=== PATIENT | female | born 1985 | race Caucasian/White ===

== ENCOUNTER 2025-03-07 00:10 | Emergency (ER) | payer BC, SELFPAY ==
[2025-03-07] VITALS (8 sets, daily range): BP systolic 108–134; BP diastolic 74–93; PULSE 98–115; RESP 13–23; TEMP 36.5; O2SAT 96–100
--- NOTE | ~2025-03-07 | CT_ITS ---
EXAMINATION: CT abdomen pelvis wo con DATE: 03/07/2025 01:40 INDICATION: Right flank pain. UTI. TECHNIQUE: Computed tomography (CT) of the abdomen and pelvis was performed without intravenous contr ast. The dose-length product was 191.61 mGy-cm. Automated exposure control and iterative reconstructi on technique were employed. COMPARISON: None. FINDINGS: Lung bases unremarkable significant pleural or pericardial effusion. Heart size normal. The liver, spleen, pancreas, adrenal glands and kidneys are unremarkable. Gallbladder is present. Hepati c steatosis. The spleen, pancreas, adrenal glands and kidneys are unremarkable. No renal stones or hy dronephrosis. Nonobstructive bowel gas pattern. Small amount of free fluid in the pelvis, likely phys iologic. No significant vascular abnormality. No lymphadenopathy. IMPRESSION: 1. No acute abdominal abnormality. Reviewed, dictated and finalized at location A.
--- OUTSIDE RECORDS SUMMARY | 2025-03-07 00:12 | XMS_ITS | Clinical Summary ---
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 Name Role Phone Tamy Davies Primary Care Provider Social History Tobacco Use Types Packs/Day Years Used Date Smoking Tobacco: Never Assessed Comments Unknown Sex and Gender Information Value Date Recorded Sex Assigned at Not on file Legal Sex Female 10:21 PM CDT Gender Identity Not on file Sexual Orientation Not on file Plan of Treatment Health Maintenance Due Date Last Done Comments Hepatitis C Virus (HCV) Screening 1986 TdaP Immunization 1986 Human Papillomavirus (HPV) Immunization (1 - 3-dose series) 2001 Hepatitis B Immunization (1 of 3 - 19+ 3-dose series) 2005 Pap Smear 11/05/2007 Cervical Cancer Screening (CCS) 2016 HPV/Cotest 2016 SARS-COV-2 Immunization (2023- season) 2024 Influenza Immunization (#1) 2025 Respiratory Syncytial Virus (RSV) Immunization (Adult) (1 - 1-dose 75+ series) 2061 Meningococcal Immunization (ACWY) Aged Out No longer eligible based on patient's age to complete this topic Pneumococcal Immunization Combined Aged Out No longer eligible based on patient's age to complete this topic Rotavirus Immunization Aged Out No lo nger eligible based on patient's age to complete this topic Insurance [place] Care Teams Tool And Die Repairer Relationship Specialty Start Date End Date Tamy Davies PA [address] [address] PCP - General Adult Medicine 09/15/17
--- OUTSIDE RECORDS SUMMARY | 2025-03-07 00:13 | XMS_ITS | Data Portability ---
Author Organization [facility] THAISZuleyka [facility] Address [address] [place] [address] Care Team Providers Care Instructor Nurse Name Role Phone TAMY DAVIES Primary Care Provider Unavailabl e Assessment No assessment recorded. Plan of Treatment Reminders Order Date Submit Date Provider Last Modified By Organization Details Last Modified Time Details Appointments None recor ded. Lab CBC w/ auto diff 2017 018 ALEXIS SQUIRES, [facility], [facility] [address], [place], [address], 8 10:37:06 CMP, serum or plasm a 2017 018 ALEXIS SQUIRES, [facility], [facility] [address], [place], [address], 8 10:37:07 TSH + free T4, serum 2017 018 ALEXIS SQUIRES, [facility] [place], [facility] [address], [place], [address], 8 10:37:06 HbA1c (hemo globi n A1c), blood 2017 018 Joyce CABRERA [facility] [address], [address], [place], [address], 8 10:37:09 vitam in B12, serum 2017 018 ALEXIS SQUIRES [facility], [address], [place], [address], 8 10:37:11 iron + total iron- fortino ng capac ity (TIBC ), serum 2017 018 ALEXIS SQUIRES, [address], [address], [place], [address], 8 10:37:08 hepat itis panel (A+B+ C), acute , serum 2017 018 ALEXIS SQUIRES, [address], [address], [place], [address], 8 10:37:08 HIV 1+2 AB + HIV 1 p24 Ag, quali tativ e immun oassa y, serum 2017 018 ALEXIS SQUIRES, [address], [address], [place], [address], 8 10:37:10 vitam in D, 25-hy droxy , total , serum 2017 018 ALEXIS SQUIRES, [address], [address], [place], [address], 8 10:37:10 CBC w/ auto diff 2014 015 ALEXIS SQUIRES, [address], [address], [place], [address], 5 07:32:51 ESR (eryt hrocy te sedim entat ion rate) , blood 2014 015 ALEXIS SQUIRES, [address], [address], [place], [address], 5 07:32:52 urina lysis , dipst ick 2014 015 [email or web address] In-Office Order, Internal Use Only DO Not Attach Compendium DO Not Attach Compendium, Do Not Delete/merge, [id number] 5 18:40:06 urina lysis compl ete, refle x cultu re 2014 015 [facility], [address] [facility], [address], [place], [address], 5 07:32:52 rf (rheu matoi d facto r), serum 2014 015 ALEXIS [facility], [address] [place] [address], [address], [place], [address], 5 10:17:00 CBC 2014 015 [email or web address] [facility], [address] [place] [address], [address], [place], [address], 5 09:41:54 CMP, serum or plasm a 2014 015 [email or web address] [facility], [address] [place] [address], [address], [place], [address], 5 09:41:36 TSH, serum or plasm a 2014 015 ALEXIS [facility], [address] [place] [address], [address], [place], [address], 5 10:17:00 LUCI (anti nucle ar antib odies ) bassame n, serum 2014 015 [email or web address] [facility], [address] [place] [address], [address], [place], [address], 5 09:41:54 Referral physi anju hargrove refer ral - Pleas e call pt to sched antonio mcgill jose angel t, Thank you 2017 018 ruddy ma [facility], [address] [facility] , [place], [address], 8 11:49:50 rheum atolo gist refer ral - Patie nt is c/o sever e pain in all the joint s mainl y both shoul ders, elbow s , wrist ,fing ers.M igrat ing joint pain. NSAID S not relie ving the pain. LUCI and and Rheum atoid facto r negat anna.E SR is gisel l 2014 015 ATHENAFAX Not available 5 13:45:11 Procedures None recor ded. Surgeries None recor ded. Imaging CT, chest + abdom en + pelvi s, w/ contr ast 2017 018 ATHENAFAX [facility], [address] [facility] , [place], [address], 8 16:19:50 CT, head, w/o contr ast 2017 018 [email or web address] [facility], [address] [place] [place], [address], 8 10:01:16 x-ray , shoul wendy, 2 views 2015 016 [email or web address] Not available 6 13:41:48 Medication Orders ondan setro n HCl 4 mg table t 2017 018 INTERFACE [id number], [address], [place], [place], [id number], 8 10:41:08 hydro codon e 5 mg-ac etami nophe n 325 mg table t 2015 016 [email or web address] Not available 8 09:22:10 hydro codon e 5 mg-ac etami nophe n 325 mg table t 2014 015 [id number], [address], [place], [place], [id number], 09:22:10 Patient TargetsNo targets recorded. 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 NSAIDS not relieving the pain.LUCI and and Rheumatoid factor negative.ESR is normal Referring Physician: Stiven Galvez, Internal Medicine, Encounter Date: 01/31/2015 Please call pt to schedule a ppointment, Thank you Referring Physician: Tamy Davies, Internal Medicine, Encounter Date: 09/10/2017 Results Created Date Observation Date Name Description Value Unit Range Abnormal Flag Note LastModifiedBy Organization Detail LastModifiedTime 01/25/2001/24/2015 urina lysis , dipst ick Leukocytes Trace Not Available In-Offi ce Order Internal Use Only DO Not Attach Compendium DO Not Attach Compendium, Do Not Delete/merge, [id number] 01/24/2015 10:05:01 01/25/20 15 01/24/2015 urina lysis , dipst ick Nitrite negati ve Not Available In-Office Order Internal Use Only DO Not Attach Compendium DO Not Attach Compendium, Do Not Delete/merge, [id number] 01/24/2015 10:05:01 01/25/20 15 01/24/2015 urina lysis , dipst ick Urobilinogen .2 Not Available In-Of fice Order Internal Use Only DO Not Attach Compendium DO Not Attach Compendium, Do Not Delete/merge, [facility] 01/24/2015 10:05:01 01/25/20 15 01/24/2015 urina lysis , dipst ick Protein Negati ve Not Available In-Office Order Internal Use Only DO Not Attach Compendium DO Not Attach Compendium, Do Not Delete/merge, [facility] 01/24/2015 10:05:01 01/25/2001/24/2015 urina lysis , dipst ick pH 7.0 Not Available In-Office Order Internal Use Only DO Not Attach Compendium DO Not Attach Compendium, Do Not Delete/merge, [facility] 01/24/2015 10:05:01 01/25/2001/24/2015 urina lysis , dipst ick Blood Negati ve Not Available In-Office Order Internal Use Only DO Not Attach Compendium DO Not Attach Compendium, Do Not Delete/merge, [facility] 01/24/2015 10:05:01 01/25/20 15 01/24/2015 urina lysis , dipst ick Specific [place] 1.010 Not Available In-Off ice Order Internal Use Only DO Not Attach Compendium DO Not Attach Compendium, Do Not Delete/merge, [facility] 01/24/2015 10:05:01 01/25/20 15 01/24/2015 urina lysis , dipst ick Ketone Negati ve Not Available In-Office Order Internal Use Only DO Not Attach Compendium DO Not Attach Compendium, Do Not Delete/merge, [facility] 01/24/2015 10:05:01 01/25/20 15 01/24/2015 urina lysis , dipst ick Bilirubin Negati ve Not Available In-Office Order Internal Use Only DO Not Attach Compendium DO Not Attach Compendium, Do Not Delete/merge, [facility] 01/24/2015 10:05:01 01/25/2001/24/2015 urina lysis , dipst ick Glucose Negati ve Not Available In-Office Order Internal Use Only DO Not Attach Compendium DO Not Attach Compendium, Do Not Delete/merge, [facility] 01/24/2015 10:05:01 01/25/2001/24/2015 urina lysis , dipst ick Color Pale Yellow Not Available In-Office Order Internal Use Only DO Not Attach Compendium DO Not Attach Compendium, Do Not Delete/merge, [id number] 01/24/2015 10:05:01 01/23/20 15 01/23/2015 TSH, serum or plasm a TSH 1.34 mIU/L normal Refer ence Range > or = 20 Years 0.40- 4.50 Pregn leidy Range s First trime ster 0.26- 2.66 Secon d trime ster 0.55- 2.73 Third trime ster 0.43- 2.91 Not Available [address], [address], 01/23/2015 02:43:05 01/23/2001/23/2015 CMP, serum or plasm a glucose 83 mg/dL 65-99 normal Fasti ng refer ence inter porfirio Not Available [address], [address], 01/23/2015 12:35:19 01/23/20 15 01/23/2015 CMP, serum or plasm a urea nitrogen (BUN) 10 mg/dL 7-25 normal Not Available [address], [address], 01/23/2015 12:35:19 01/23/20 15 01/23/2015 CMP, serum or plasm a creatinine 0.68 mg/dL 0.50-1 .10 normal Not Available [address], [address], 01/23/2015 12:35:19 01/23/20 15 01/23/2015 CMP, serum or plasm a eGFR non-afr. venezuelan 119 mL/mi n/1.7 3m2 > or = 60 normal Not Available [facility] [address], [address], 01/23/2015 12:35:19 01/23/20 15 01/23/2015 CMP, serum or plasm a eGFR 138 mL/mi n/1.7 3m2 > or = 60 normal Not Available [address], [address], 01/23/2015 12:35:19 01/23/20 15 01/23/2015 CMP, serum or plasm a BUN/creatini ne ratio NOT APPLIC ABLE (calc ) 6-22 Not Available [address], [address], 01/23/2015 12:35:19 01/23/20 15 01/23/2015 CMP, serum or plasm a sodium 135 mmol/ L 135-14 6 normal Not Available [address], [address], 01/23/2015 12:35:19 01/23/2001/23/2015 CMP, serum or plasm a potassium 3.9 mmol/ L 3.5-5. 3 normal Not Available [address], [address], 01/23/2015 12:35:19 01/23/2001/23/2015 CMP, serum or plasm a chloride 105 mmol/ L 98-110 normal Not Available [address], [address], 01/23/2015 12:35:19 01/23/2001/23/2015 CMP, serum or plasm a carbon dioxide 19 mmol/ L 19-30 normal Not Available [address], [address], 01/23/2015 12:35:19 01/23/2001/23/2015 CMP, serum or plasm a calcium 8.9 mg/dL 8.6-10 .2 normal Not Available [address], [address], 01/23/2015 12:35:19 01/23/2001/23/2015 CMP, serum or plasm a protein, total 7.1 g/dL 6.1-8. 1 normal Not Available [address], [address], 01/23/2015 12:35:19 01/23/2001/23/2015 CMP, serum or plasm a albumin 4.4 g/dL 3.6-5. 1 normal Not Available [address], [address], 01/23/2015 12:35:19 01/23/20 15 01/23/2015 CMP, serum or plasm a globulin 2.7 g/dL_ (calc ) 1.9-3. 7 normal Not Available [address], [address], 01/23/2015 12:35:19 01/23/2001/23/2015 CMP, serum or plasm a albumin/glob ulin ratio 1.6 (calc ) 1.0-2. 5 normal Not Available [address], [address], 01/23/2015 12:35:19 01/23/2001/23/2015 CMP, serum or plasm a bilirubin, total 0.3 mg/dL 0.2-1. 2 normal Not Available [address], [address], 01/23/2015 12:35:19 01/23/2001/23/2015 CMP, serum or plasm a alkaline phosphatase 50 U/L 33-115 normal Not Available [facility] [address], [address], 01/23/2015 12:35:01/23/2001/23/2015 CMP, serum or plasm a AST 18 U/L 10-30 normal Not Available [address], [address], 01/23/2015 12:35:19 01/23/2001/23/2015 CMP, serum or plasm a ALT 20 U/L 6-29 normal Not Available [address], [address], 01/23/2015 12:35:01/23/2001/23/2015 CBC w/ auto diff white blood cell count 12.5 thous and/u L 3.8-10 .8 high Not Available [address], [address], 01/23/2015 12:35:01/23/2001/23/2015 CBC w/ auto diff red blood cell count 5.10 oly on/uL 3.80-5 .10 normal Not Available [address], [address], 01/23/2015 12:35:19 01/23/2001/23/2015 CBC w/ auto diff hemoglobin 13.4 g/dL 11.7-1 5.5 normal Not Available [address], [address], 01/23/2015 12:35:19 01/23/2001/23/2015 CBC w/ auto diff hematocrit 41.0 % 35.0-4 5.0 normal Not Available [address], [address], 01/23/2015 12:35:19 01/23/2001/23/2015 CBC w/ auto diff MCV 80.4 fL 80.0-1 00.0 normal Not Available [address], [address], 01/23/2015 12:35:01/23/2001/23/2015 CBC w/ auto diff MCH 26.3 pg 27.0-3 3.0 low Not Available [address], [address], 01/23/2015 12:35:19 01/23/2001/23/2015 CBC w/ auto diff MCHC 32.7 g/dL 32.0-3 6.0 normal Not Available [address], [address], 01/23/2015 12:35:19 01/23/20 15 01/23/2015 CBC w/ auto diff RDW 16.2 % 11.0-1 5.0 high Not Available [address], [address], 01/23/2015 12:35:19 01/23/20 15 01/23/2015 CBC w/ auto diff platelet count 302 thous and/u L 140-40 0 normal Not Available [address], [address], 01/23/2015 12:35:19 01/23/2001/23/2015 CBC w/ auto diff MPV 7.6 fL 7.5-11 .5 normal Not Available [address], [address], 01/23/2015 12:35:19 01/23/20 15 01/23/2015 CBC w/ auto diff absolute neutrophils 9525 cells /uL 1500-7 800 high Not Available [address], [address], 01/23/2015 12:35:19 01/23/2001/23/2015 CBC w/ auto diff absolute lymphocytes 2350 cells /uL 850-39 00 normal Not Available [address], [address], 01/23/2015 12:35:19 01/23/2001/23/2015 CBC w/ auto diff absolute monocytes 425 cells /uL 200-95 0 normal Not Available [address], [address], 01/23/2015 12:35:19 01/23/2001/23/2015 CBC w/ auto diff absolute eosinophils 175 cells /uL 15-500 normal Not Available [address] [address] [place], [address], 01/23/2015 12:35:19 01/23/20 15 01/23/2015 CBC w/ auto diff absolute basophils 25 cells /uL 0-200 normal Not Available [address] [place], [address], 01/23/2015 12:35:19 01/23/20 15 01/23/2015 CBC w/ auto diff neutrophils 76.2 % normal Not Available [address] [place], [address], 01/23/2015 12:35:19 01/23/20 15 01/23/2015 CBC w/ auto diff lymphocytes 18.8 % normal Not Available [address] [place], [address], 01/23/2015 12:35:19 01/23/20 15 01/23/2015 CBC w/ auto diff monocytes 3.4 % normal Not Available [address], [address], 01/23/2015 12:35:19 01/23/2001/23/2015 CBC w/ auto diff eosinophils 1.4 % normal Not Available [address] [place], [address], 01/23/2015 12:35:19 01/23/20 15 01/23/2015 CBC w/ auto diff basophils 0.2 % normal Not Available [address] [place], [address], 01/23/2015 12:35:19 01/23/2001/23/2015 LUCI (anti nucle ar antib odies ) panel , serum LUCI screen, ifa NEGATI VE negati ve normal Not Available [address] [place], [address], 01/23/2015 15:43:16 01/23/20 15 01/23/2015 rf (rheu matoi d facto r), serum rheumatoid factor 11 IU/mL <14 normal Not Available [address], [address], 01/23/2015 12:35:20 01/23/20 15 01/23/2015 CMP, serum or plasm a glucose 83 mg/dL 65-99 normal Fasti ng refer ence inter porfirio Not Available [address], [address], 01/23/2015 02:43:04 01/23/20 15 01/23/2015 CMP, serum or plasm a urea nitrogen (BUN) 10 mg/dL 7-25 normal Not Available [address], [address], 01/23/2015 02:43:04 01/23/20 15 01/23/2015 CMP, serum or plasm a creatinine 0.68 mg/dL 0.50-1 .10 normal Not Available [address], [address], 01/23/2015 02:43:04 01/23/20 15 01/23/2015 CMP, serum or plasm a eGFR non-afr. venezuelan 119 mL/mi n/1.7 3m2 > or = 60 normal Not Available [address], [address], 01/23/2015 02:43:04 01/23/20 15 01/23/2015 CMP, serum or plasm a eGFR 138 mL/mi n/1.7 3m2 > or = 60 normal Not Available [address], [address], 01/23/2015 02:43:04 01/23/20 15 01/23/2015 CMP, serum or plasm a BUN/creatini ne ratio NOT APPLIC ABLE (calc ) 6-22 Not Available [address] [place], [address], 01/23/2015 02:43:04 01/23/20 15 01/23/2015 CMP, serum or plasm a sodium 135 mmol/ L 135-14 6 normal Not Available [address], [address], 01/23/2015 02:43:04 01/23/20 15 01/23/2015 CMP, serum or plasm a potassium 3.9 mmol/ L 3.5-5. 3 normal Not Available [address], [address], 01/23/2015 02:43:04 01/23/2001/23/2015 CMP, serum or plasm a chloride 105 mmol/ L 98-110 normal Not Available [address], [address], 01/23/2015 02:43:04 01/23/20 15 01/23/2015 CMP, serum or plasm a carbon dioxide 19 mmol/ L 19-30 normal Not Available [address], [address], 01/23/2015 02:43:04 01/23/2001/23/2015 CMP, serum or plasm a calcium 8.9 mg/dL 8.6-10 .2 normal Not Available [address], [address], 01/23/2015 02:43:04 01/23/2001/23/2015 CMP, serum or plasm a protein, total 7.1 g/dL 6.1-8. 1 normal Not Available [address], [address], 01/23/2015 02:43:04 01/23/2001/23/2015 CMP, serum or plasm a albumin 4.4 g/dL 3.6-5. 1 normal Not Available [address], [address], 01/23/2015 02:43:04 01/23/20 15 01/23/2015 CMP, serum or plasm a globulin 2.7 g/dL_ (calc ) 1.9-3. 7 normal Not Available [address], [address], 01/23/2015 02:43:04 01/23/20 15 01/23/2015 CMP, serum or plasm a albumin/glob ulin ratio 1.6 (calc ) 1.0-2. 5 normal Not Available [address], [address], 01/23/2015 02:43:04 01/23/20 15 01/23/2015 CMP, serum or plasm a bilirubin, total 0.3 mg/dL 0.2-1. 2 normal Not Available [address], [address], 01/23/2015 02:43:04 01/23/20 15 01/23/2015 CMP, serum or plasm a alkaline phosphatase 50 U/L 33-115 normal Not Available [facility] [address], [address], 01/23/2015 02:43:04 01/23/20 15 01/23/2015 CMP, serum or plasm a AST 18 U/L 10-30 normal Not Available [address], [address], 01/23/2015 02:43:04 01/23/20 15 01/23/2015 CMP, serum or plasm a ALT 20 U/L 6-29 normal Not Available [address], [address], 01/23/2015 02:43:04 01/23/20 15 01/23/2015 CBC w/ auto diff white blood cell count 12.5 thous and/u L 3.8-10 .8 high Not Available [address], [address], 01/23/2015 02:02:01/23/20 15 01/23/2015 CBC w/ auto diff red blood cell count 5.10 oly on/uL 3.80-5 .10 normal Not Available [address], [address], 01/23/2015 02:02:01/23/2001/23/2015 CBC w/ auto diff hemoglobin 13.4 g/dL 11.7-1 5.5 normal Not Available [address], [address], 01/23/2015 02:02:01/23/2001/23/2015 CBC w/ auto diff hematocrit 41.0 % 35.0-4 5.0 normal Not Available [address], [address], 01/23/2015 02:02:01/23/2001/23/2015 CBC w/ auto diff MCV 80.4 fL 80.0-1 00.0 normal Not Available [address], [address], 01/23/2015 02:02:01/23/2001/23/2015 CBC w/ auto diff MCH 26.3 pg 27.0-3 3.0 low Not Available [address], [address], 01/23/2015 02:02:01/23/2001/23/2015 CBC w/ auto diff MCHC 32.7 g/dL 32.0-3 6.0 normal Not Available [address], [address], 01/23/2015 02:02:01/23/2001/23/2015 CBC w/ auto diff RDW 16.2 % 11.0-1 5.0 high Not Available [address], [address], 01/23/2015 02:02:21 01/23/20 15 01/23/2015 CBC w/ auto diff platelet count 302 thous and/u L 140-40 0 normal Not Available [address], [address], 01/23/2015 02:02:21 01/23/20 15 01/23/2015 CBC w/ auto diff MPV 7.6 fL 7.5-11 .5 normal Not Available [address], [address], 01/23/2015 02:02:21 01/23/2001/23/2015 CBC w/ auto diff absolute neutrophils 9525 cells /uL 1500-7 800 high Not Available [address], [address], 01/23/2015 02:02:21 01/23/20 15 01/23/2015 CBC w/ auto diff absolute lymphocytes 2350 cells /uL 850-39 00 normal Not Available [address], [address], 01/23/2015 02:02:21 01/23/20 15 01/23/2015 CBC w/ auto diff absolute monocytes 425 cells /uL 200-95 0 normal Not Available [address], [address], 01/23/2015 02:02:21 01/23/2001/23/2015 CBC w/ auto diff absolute eosinophils 175 cells /uL 15-500 normal Not Available [address], [address], 01/23/2015 02:02:21 01/23/20 15 01/23/2015 CBC w/ auto diff absolute basophils 25 cells /uL 0-200 normal Not Available [address], [address], 01/23/2015 02:02:21 01/23/20 15 01/23/2015 CBC w/ auto diff neutrophils 76.2 % normal Not Available [address], [address], 01/23/2015 02:02:21 01/23/20 15 01/23/2015 CBC w/ auto diff lymphocytes 18.8 % normal Not Available [address], [address], 01/23/2015 02:02:21 01/23/20 15 01/23/2015 CBC w/ auto diff monocytes 3.4 % normal Not Available [address], [address], 01/23/2015 02:02:21 01/23/20 15 01/23/2015 CBC w/ auto diff eosinophils 1.4 % normal Not Available [address], [address], 01/23/2015 02:02:21 01/23/20 15 01/23/2015 CBC w/ auto diff basophils 0.2 % normal Not Available [address], [address], 01/23/2015 02:02:21 01/23/20 15 01/23/2015 rf (rheu matoi d facto r), serum rheumatoid factor Not Available [address], [address], 01/23/2015 02:43:05 01/23/20 15 01/23/2015 LUCI (anti nucle ar antib odies ) panel , serum LUCI screen, ifa Not Available [address], [address], 01/23/2015 02:43:05 01/23/20 15 01/23/2015 rf (rheu matoi d facto r), serum rheumatoid factor Not Available [facility] [address], [place], [address], 01/23/2015 02:02:21 01/23/20 15 01/23/2015 LUCI (anti nucle ar antib odies ) panel , serum LUCI screen, ifa Not Available [facility] [address] [address], [place], [address], 01/23/2015 02:02:21 01/25/20 15 01/25/2015 CBC w/ auto diff WBC 9.9 x10e3 /uL 3.4-10 .8 Not Available [facility] ([facility]) [address] [place], [address], 01/25/2015 07:32:51 01/25/20 15 01/25/2015 CBC w/ auto diff RBC 5.45 x10e6 /uL 3.77-5 .28 high Not Available [facility] ([facility]) [address] [place], [address], 01/25/2015 07:32:51 01/25/20 15 01/25/2015 CBC w/ auto diff hemoglobin 14.1 g/dL 11.1-1 5.9 Not Available [facility] ([facility]) [address] [place] [address], [place], [address], 01/25/2015 07:32:51 01/25/20 15 01/25/2015 CBC w/ auto diff hematocrit 43.2 % 34.0-4 6.6 Not Available [facility] ([facility]) [address] [place] [address], [address], 01/25/2015 07:32:51 01/25/20 15 01/25/2015 CBC w/ auto diff MCV 79 fL 79-97 Not Available [facility] ([facility]) [address] [place] [address], [address], 01/25/2015 07:32:51 01/25/20 15 01/25/2015 CBC w/ auto diff MCH 25.9 pg 26.6-3 3.0 low Not Available [facility] ([facility]) [address] [facility], [place], [address], 01/25/2015 07:32:51 01/25/20 15 01/25/2015 CBC w/ auto diff MCHC 32.6 g/dL 31.5-3 5.7 Not Available [facility] ([facility]) [address] [facility], [place], [address], 01/25/2015 07:32:51 01/25/20 15 01/25/2015 CBC w/ auto diff RDW 15.1 % 12.3-1 5.4 Not Available [facility] ([facility]) [address] [facility], [place], [address], 01/25/2015 07:32:51 01/25/20 15 01/25/2015 CBC w/ auto diff platelets 321 x10e3 /uL 150-37 9 Not Available [facility] ([facility]) [address] [place], [address], 01/25/2015 07:32:51 01/25/20 15 01/25/2015 CBC w/ auto diff neutrophils 78 % Not Available [facility] ([facility]) [address] [facility], [place], [address], 01/25/2015 07:32:51 01/25/20 15 01/25/2015 CBC w/ auto diff lymphs 18 % Not Available [facility] ([facility]) [address] [place], [address], 01/25/2015 07:32:51 01/25/20 15 01/25/2015 CBC w/ auto diff monocytes 3 % Not Available [facility] ([facility]) [address] [place], [address], 01/25/2015 07:32:51 01/25/20 15 01/25/2015 CBC w/ auto diff eos 1 % Not Available [facility] ([facility]) [address] [facility], [place], [address], 01/25/2015 07:32:51 01/25/2001/25/2015 CBC w/ auto diff basos 0 % Not Available [facility] (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) [address] [facility], [place], [address], 01/25/2015 07:32:51 01/25/2001/25/2015 CBC w/ auto diff neutrophils (absolute) 7.7 x10e3 /uL 1.4-7. 0 high Not Available [facility] ([facility]) [address] [place], [address], 01/25/2015 07:32:51 01/25/20 15 01/25/2015 CBC w/ auto diff lymphs (absolute) 1.8 x10e3 /uL 0.7-3. 1 Not Available [facility] ([facility]) [address] [place], [address], 01/25/2015 07:32:51 01/25/20 15 01/25/2015 CBC w/ auto diff monocytes(ab solute) 0.3 x10e3 /uL 0.1-0. 9 Not Available [facility] ([facility] [facility]) [address] [place], [address], 01/25/2015 07:32:51 01/25/2001/25/2015 CBC w/ auto diff eos (absolute) 0.1 x10e3 /uL 0.0-0. 4 Not Available [facility] ([facility]) [address] [place], [address], 01/25/2015 07:32:51 01/25/2001/25/2015 CBC w/ auto diff baso (absolute) 0.0 x10e3 /uL 0.0-0. 2 Not Available [facility] ([facility]) [address] [place], [address], 01/25/2015 07:32:51 01/25/20 15 01/25/2015 CBC w/ auto diff immature granulocytes 0 % Not Available [facility] ([facility]) [address] [place], [address], 01/25/2015 07:32:51 01/25/20 15 01/25/2015 CBC w/ auto diff immature grans (abs) 0.0 x10e3 /uL 0.0-0. 1 Not Available [facility] (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) [address] [place], [address], 01/25/2015 07:32:51 01/25/20 15 01/25/2015 CBC w/ auto diff hematology comments: REPAIR COIL WINDER Not Available [facility] ([facility]) [address] [facility], [place], [address], 01/25/2015 07:32:51 01/25/2001/25/2015 urina lysis compl ete, refle x cultu re specific gravity 1.011 1.005- 1.030 Not Available [facility] ([facility]) [address] [place], [address], 01/25/2015 07:32:52 01/25/20 15 01/25/2015 urina lysis compl ete, refle x cultu re pH 8.5 5.0-7. 5 high Not Available [facility] ([facility]) [address] [place], [address], 01/25/2015 07:32:52 01/25/20 15 01/25/2015 urina lysis compl ete, refle x cultu re urine-color YELLOW yellow Not Available [facility] ([facility]) [address] [place], [address], 01/25/2015 07:32:52 01/25/20 15 01/25/2015 urina lysis compl ete, refle x cultu re appearance CLOUDY clear abnormal Not Available [facility] ([facility]) [address] [place], [address], 01/25/2015 07:32:52 01/25/20 15 01/25/2015 urina lysis compl ete, refle x cultu re WBC esterase NEGATI VE negati ve Not Available [facility] ([facility]) [address] [place], [address], 01/25/2015 07:32:52 01/25/20 15 01/25/2015 urina lysis compl ete, refle x cultu re protein NEGATI VE negati ve/tra ce Not Available [facility] ([facility]) [address] [place], [address], 01/25/2015 07:32:52 01/25/20 15 01/25/2015 urina lysis compl ete, refle x cultu re glucose NEGATI VE negati ve Not Available [facility] (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) [address] [place], [address], 01/25/2015 07:32:52 01/25/20 15 01/25/2015 urina lysis compl ete, refle x cultu re ketones NEGATI VE negati ve Not Available [facility] ([facility]) [address] [facility], [place], [address], 01/25/2015 07:32:52 01/25/20 15 01/25/2015 urina lysis compl ete, refle x cultu re occult blood NEGATI VE negati ve Not Available [facility] ([facility]) [address] [facility], [place], [address], 01/25/2015 07:32:52 01/25/20 15 01/25/2015 urina lysis compl ete, refle x cultu re bilirubin NEGATI VE negati ve Not Available [facility] ([facility]) [address] [facility], [place], [address], 01/25/2015 07:32:52 01/25/20 15 01/25/2015 urina lysis compl ete, refle x cultu re urobilinogen ,semi-qn 0.2 mg/dL 0.0-1. 9 Not Available [facility] ([facility]) [address] [facility], [place], [address], 01/25/2015 07:32:52 01/25/20 15 01/25/2015 urina lysis compl ete, refle x cultu re nitrite, urine NEGATI VE negati ve Not Available [facility] ([facility]) [address] [facility], [place], [address], 01/25/2015 07:32:52 01/25/20 15 01/25/2015 urina lysis compl ete, refle x cultu re microscopic examination COMMEN T MICRO SCOPI C FOLLO WS IF INDIC ATED. Not Available [facility] ([facility]) [address] [facility], [place], [address], 01/25/2015 07:32:52 01/25/20 15 01/25/2015 urina lysis compl ete, refle x cultu re microscopic examination SEE BELOW: MICRO SCOPI C WAS INDIC ATED AND WAS PERFO RMED. Not Available [facility] ([facility]) [address] [facility], [place], [address], 01/25/2015 07:32:52 01/25/20 15 01/25/2015 urina lysis compl ete, refle x cultu re WBC 0-5 /hpf 0 - 5 Not Available [facility] ([facility]) [address] [facility], [place], [address], 01/25/2015 07:32:52 01/25/20 15 01/25/2015 urina lysis compl ete, refle x cultu re RBC 0-2 /hpf 0 - 2 Not Available [facility] ([facility]) [address] [facility], [place], [address], 01/25/2015 07:32:52 01/25/20 15 01/25/2015 urina lysis compl ete, refle x cultu re epithelial cells (non renal) 0-10 /hpf 0 - 10 Not Available [facility] (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) [address] [facility], [place], [address], 01/25/2015 07:32:52 01/25/20 15 01/25/2015 urina lysis compl ete, refle x cultu re mucus threads PRESEN T not estab. Not Available [facility] ([facility]) [address] [facility], [place], [address], 01/25/2015 07:32:52 01/25/20 15 01/25/2015 urina lysis compl ete, refle x cultu re bacteria FEW none seen/f ew Not Available [facility] (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) [address] [place], [address], 01/25/2015 07:32:52 01/25/20 15 01/25/2015 urina lysis compl ete, refle x cultu re urinalysis reflex COMMEN T THIS SPECI MEN WILL NOT REFLE X TO A URINE CULTU RE. Not Available [facility] ([facility]) [address] [facility], [place], [address], 01/25/2015 07:32:52 01/25/20 15 01/25/2015 ESR (eryt hrocy te sedim entat ion rate) , blood sedimentatio n rate-westerg kim 14 mm/HR 0-32 Not Available [facility] ([facility]) [address] [place], [address], 01/25/2015 07:32:52 09/10/19 18 09/11/2017 TSH + free T4, serum TSH 0.654 uIU/m L 0.450- 4.500 Not Available [facility] ([facility]) [address] [place], [address], 09/11/2017 10:37:06 09/10/19 18 09/11/2017 TSH + free T4, serum T4,free(dire ct) 1.29 NG/dL 0.82-1 .77 Not Available [facility] ([facility]) [address] [place], [address], 09/11/2017 10:37:06 09/10/19 18 09/11/2017 CBC w/ auto diff WBC 10.2 x10e3 /uL 3.4-10 .8 Not Available [facility] ([facility]) [address] [place], [address], 09/11/2017 10:37:06 09/10/19 18 09/11/2017 CBC w/ auto diff RBC 4.67 x10e6 /uL 3.77-5 .28 Not Available [facility] ([facility]) [address] [place], [address], 09/11/2017 10:37:06 09/10/19 18 09/11/2017 CBC w/ auto diff hemoglobin 13.9 g/dL 11.1-1 5.9 Not Available [facility] ([facility]) [address] [facility] [place] [place], [address], 09/11/2017 10:37:06 09/10/19 18 09/11/2017 CBC w/ auto diff hematocrit 40.9 % 34.0-4 6.6 Not Available [facility] ([facility]) [address] [facility], [place], [address], 09/11/2017 10:37:06 09/10/19 18 09/11/2017 CBC w/ auto diff MCV 88 fL 79-97 Not Available [facility] ([facility]) [address] [facility], [place], [address], 09/11/2017 10:37:06 09/10/19 18 09/11/2017 CBC w/ auto diff MCH 29.8 pg 26.6-3 3.0 Not Available [facility] ([facility]) [address] [place], [address], 09/11/2017 10:37:06 09/10/19 18 09/11/2017 CBC w/ auto diff MCHC 34.0 g/dL 31.5-3 5.7 Not Available [facility] ([facility]) [address] [facility], [place], [address], 09/11/2017 10:37:06 09/10/19 18 09/11/2017 CBC w/ auto diff RDW 13.8 % 12.3-1 5.4 Not Available [facility] ([facility]) [address] [place], [address], 09/11/2017 10:37:06 09/10/19 18 09/11/2017 CBC w/ auto diff platelets 274 x10e3 /uL 150-37 9 Not Available [facility] ([facility]) [address] [place], [address], 09/11/2017 10:37:06 09/10/19 18 09/11/2017 CBC w/ auto diff neutrophils 78 % not estab. Not Available [facility] ([facility]) [address] [facility], [place], [address], 09/11/2017 10:37:06 09/10/19 18 09/11/2017 CBC w/ auto diff lymphs 18 % not estab. Not Available [facility] ([facility]) [address] [facility], [place], [address], 09/11/2017 10:37:06 09/10/19 18 09/11/2017 CBC w/ auto diff monocytes 4 % not estab. Not Available [facility] ([facility]) [address] [facility], [place], [address], 09/11/2017 10:37:06 09/10/19 18 09/11/2017 CBC w/ auto diff eos 0 % not estab. Not Available [facility] ([facility]) [address] [facility], [place], [address], 09/11/2017 10:37:06 09/10/19 18 09/11/2017 CBC w/ auto diff basos 0 % not estab. Not Available [facility] (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) [address] [facility], [place], [address], 09/11/2017 10:37:06 09/10/19 18 09/11/2017 CBC w/ auto diff neutrophils (absolute) 8.0 x10e3 /uL 1.4-7. 0 above high normal Not Available [facility] ([facility]) [address] [facility] [place] [place], [address], 09/11/2017 10:37:06 09/10/19 18 09/11/2017 CBC w/ auto diff lymphs (absolute) 1.8 x10e3 /uL 0.7-3. 1 Not Available [facility] ([facility]) [address] [facility], [place], [address], 09/11/2017 10:37:06 09/10/19 18 09/11/2017 CBC w/ auto diff monocytes(ab solute) 0.5 x10e3 /uL 0.1-0. 9 Not Available [facility] ([facility]) [address] [facility], [place], [address], 09/11/2017 10:37:06 09/10/19 18 09/11/2017 CBC w/ auto diff eos (absolute) 0.0 x10e3 /uL 0.0-0. 4 Not Available [facility] ([facility]) [address] [facility], [place], [address], 09/11/2017 10:37:06 09/10/19 18 09/11/2017 CBC w/ auto diff baso (absolute) 0.0 x10e3 /uL 0.0-0. 2 Not Available [facility] ([facility]) [address] [facility], [place], [address], 09/11/2017 10:37:06 09/10/19 18 09/11/2017 CBC w/ auto diff immature granulocytes 0 % not estab. Not Available [facility] ([facility]) [address] [place], [address], 09/11/2017 10:37:06 09/10/19 18 09/11/2017 CBC w/ auto diff immature grans (abs) 0.0 x10e3 /uL 0.0-0. 1 Not Available [facility] (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) [address] [facility] [place], [address], 09/11/2017 10:37:06 09/10/19 18 09/11/2017 CBC w/ auto diff hematology comments: REPAIR COIL WINDER Not Available [facility] ([facility]) [address] [facility] [place], [address], 09/11/2017 10:37:06 09/10/19 18 09/11/2017 CMP, serum or plasm a glucose, serum 89 mg/dL 65-99 Not Available [facility] ([facility]) [address] [facility] [place], [address], 09/11/2017 10:37:07 09/10/19 18 09/11/2017 CMP, serum or plasm a BUN 8 mg/dL 6-20 Not Available [facility] ([facility]) [address] [facility] [place], [address], 09/11/2017 10:37:07 09/10/19 18 09/11/2017 CMP, serum or plasm a creatinine, serum 0.56 mg/dL 0.57-1 .00 below low normal Not Available [facility] ([facility]) [address] [facility] [place], [address], 09/11/2017 10:37:07 09/10/19 18 09/11/2017 CMP, serum or plasm a eGFR if nonafricn AM 126 mL/mi n/1.7 3 >59 Not Available [facility] ([facility]) [address] [facility] [place], [address], 09/11/2017 10:37:07 09/10/19 18 09/11/2017 CMP, serum or plasm a eGFR if africn AM 145 mL/mi n/1.7 3 >59 Not Available [facility] ([facility]) [address] [facility] [place], [address], 09/11/2017 10:37:07 09/10/19 18 09/11/2017 CMP, serum or plasm a BUN/creatini ne ratio 14 9-23 Not Available [facility] ([facility]) [address] [place], [address], 09/11/2017 10:37:07 09/10/19 18 09/11/2017 CMP, serum or plasm a sodium, serum 142 mmol/ L 134-14 4 Not Available [facility] ([facility]) [address] [place] [address], [address], 09/11/2017 10:37:07 09/10/19 18 09/11/2017 CMP, serum or plasm a potassium, serum 4.1 mmol/ L 3.5-5. 2 Not Available [facility] ([facility]) [address] [place] [address], [address], 09/11/2017 10:37:07 09/10/19 18 09/11/2017 CMP, serum or plasm a chloride, serum 99 mmol/ L 96-106 Not Available [facility] ([facility]) [address] [place], [address], 09/11/2017 10:37:07 09/10/19 18 09/11/2017 CMP, serum or plasm a carbon dioxide, total 23 mmol/ L 18-29 Not Available [facility] ([facility]) [address] [place], [address], 09/11/2017 10:37:07 09/10/19 18 09/11/2017 CMP, serum or plasm a calcium, serum 10.0 mg/dL 8.7-10 .2 Not Available [facility] ([facility]) [address] [place] [address], [address], 09/11/2017 10:37:07 09/10/19 18 09/11/2017 CMP, serum or plasm a protein, total, serum 7.7 g/dL 6.0-8. 5 Not Available [facility] ([facility]) [facility] [place], [address], 09/11/2017 10:37:07 09/10/19 18 09/11/2017 CMP, serum or plasm a albumin, serum 5.3 g/dL 3.5-5. 5 Not Available [facility] ([facility]) [address] [facility] [place], [address], 09/11/2017 10:37:07 09/10/19 18 09/11/2017 CMP, serum or plasm a globulin, total 2.4 g/dL 1.5-4. 5 Not Available [facility] ([facility]) [address] [facility] [place], [address], 09/11/2017 10:37:07 09/10/19 18 09/11/2017 CMP, serum or plasm a A/G ratio 2.2 1.2-2. 2 Not Available [facility] ([facility]) [address] [place], [address], 09/11/2017 10:37:07 09/10/19 18 09/11/2017 CMP, serum or plasm a bilirubin, total 0.3 mg/dL 0.0-1. 2 Not Available [facility] ([facility]) [address] [place], [address], 09/11/2017 10:37:07 09/10/19 18 09/11/2017 CMP, serum or plasm a alkaline phosphatase, S 66 IU/L 39-117 Not Available [facility] ([facility]) [address] [place], [address], 09/11/2017 10:37:07 09/10/19 18 09/11/2017 CMP, serum or plasm a AST (SGOT) 17 IU/L 0-40 Not Available [facility] ([facility]) [address] [facility] [place], [address], 09/11/2017 10:37:07 09/10/19 18 09/11/2017 CMP, serum or plasm a ALT (SGPT) 20 IU/L 0-32 Not Available [facility] ([facility]) [address] [place] [address], [address], 09/11/2017 10:37:07 09/10/19 18 09/11/2017 iron + total iron- fortino ng capac ity (TIBC ), serum iron bind.cap.(TI BC) 366 ug/dL 250-45 0 Not Available [facility] ([facility]) [address] [place], [address], 09/11/2017 10:37:08 09/10/19 18 09/11/2017 iron + total iron- fortino ng capac ity (TIBC ), serum UIBC 278 ug/dL 131-42 5 Not Available [facility] ([facility]) [address] [place] [address], [address], 09/11/2017 10:37:08 09/10/19 18 09/11/2017 iron + total iron- fortino ng capac ity (TIBC ), serum iron, serum 88 ug/dL 27-159 Not Available [facility] ([facility]) [address] [place], [address], 09/11/2017 10:37:08 09/10/19 18 09/11/2017 iron + total iron- fortino ng capac ity (TIBC ), serum iron saturation 24 % 15-55 Not Available [facility] ([facility]) [address] [place], [address], 09/11/2017 10:37:08 09/10/19 18 09/11/2017 hepat itis panel (A+B+ C), acute , serum hep A Ab, IgM Negati ve negati ve Not Available [facility] ([facility]) [address] [place] [address], [address], 09/11/2017 10:37:08 09/10/19 18 09/11/2017 hepat itis panel (A+B+ C), acute , serum HBsAg screen Negati ve negati ve Not Available [facility] ([facility]) [address] [facility], [place], [address], 09/11/2017 10:37:08 09/10/19 18 09/11/2017 hepat itis panel (A+B+ C), acute , serum hep B core Ab, IgM Negati ve negati ve Not Available [facility] ([facility]) [address] [facility], [place], [address], 09/11/2017 10:37:08 09/10/19 18 09/11/2017 hepat itis panel (A+B+ C), acute , serum hep C virus Ab <0.1 s/co_ ratio 0.0-0. 9 Negat anna: < 0.8 Indet ermin ate: 0.8 - 0.9 Posit anna: > 0.9 The CDC recom mends that a posit anna HCV antib armen resul t be follo wed up with a HCV Nucle ic Acid Ampli ficat ion test (5507 13). Not Available [facility] ([facility]) [address] [facility], [place], [address], 09/11/2017 10:37:08 09/10/19 18 09/11/2017 HbA1c (hemo globi n A1c), blood hemoglobin A1C 4.9 % 4.8-5. 6 Pre-d iabet es: 5.7 - 6.4 Diabe ene: >6.4 Glyce ld contr ol for adult s with diabe ene: <7.0 Not Available [facility] ([facility]) [address] [facility], [place], [address], 09/11/2017 10:37:09 09/10/19 18 09/11/2017 vitam in D, 25-hy droxy , total , serum vitamin D, 25-hydroxy 19.6 NG/mL 30.0-1 00.0 below low normal Vitam in D defic iency has been defin ed by the Insti tute of Medic ine and an Endoc rine Socie ty pract ice guide line as a level of serum 25-OH vitam in D less than 20 ng/mL (1,2) . The Endoc rine Socie ty went on to furth er defin e vitam in D insuf ficie ncy as a level betwe en 21 and 29 ng/mL (2). 1. IOM (Inst itute of Medic ine). 2009. Dieta ry refer ence intak es for calci um and D. Marily magana [place]: [facility] . 2. Serafin garland [place], William ortega [place], Bisch off-F errar i CONRAD, et al. Evalu ation , treat ment, and preve ntion of vitam in D defic iency : an Endoc rine Socie ty clini anju pract ice guide line. JCEM. 2010; 96(7) :1911 -30. Not Available [facility] ([facility]) [address] [place], [address], 09/11/2017 10:37:10 09/10/19 18 09/11/2017 HIV 1+2 AB + HIV 1 p24 Ag, quali tativ e immun oassa y, serum HIV screen 4TH generation wrfx Non Reacti ve non reacti ve Not Available [facility] ([facility]) [address] [place], [address], 09/11/2017 10:37:10 09/10/19 18 09/11/2017 vitam in B12, serum vitamin B12 851 pg/mL 232-12 45 Not Available [facility] ([facility]) [address] [place], [address], 09/11/2017 10:37:11 08/31/19 16 01/17/2014 imagi ng/di agnos tic resul t No observ ation record ed. [email or web address] Not Available 2015 08:34:10 08/31/19 16 10/16/2013 imagi ng/di agnos tic resul t No observ ation record ed. [email or web address] Not Available 2015 08:35:28 08/31/19 16 09/13/2013 imagi ng/di agnos tic resul t No observ ation record ed. [email or web address] Not Available 2015 08:36:11 12/24/19 16 12/24/2015 x-ray , shoul wendy, 2 views No observ ation record ed. [email or web address] Not Available 2015 16:47:28 12/24/19 16 12/24/2015 x-ray , shoul wendy, 2 views No observ ation record ed. [email or web address] [place] [address] [address], [place], [address], 12/25/2015 13:05:20 09/10/19 18 07/24/2015 MRI, cervi anju spine , w/wo contr ast No observ ation record ed. [email or web address] Not Available 2017 17:24:03 09/10/19 18 07/25/2015 MRI, brain + brain stem, w/wo contr ast No observ ation record ed. [email or web address] Not Available 2017 17:25:22 09/10/19 18 01/17/2014 MRI, lumba r spine , w/ contr ast No observ ation record ed. [email or web address] Not Available 2017 17:25:22 09/10/19 18 10/16/2013 XR, lumba r spine No observ ation record ed. [email or web address] Not Available 2017 17:26:00 Result Notes None recorded. Problems Name Problem SNOMED Code Status Onset Date Resolution Date Notes Provider Name and Address Organization Details Recorded Time Pain of multiple joints 80660729 Active Stiven [place] null, [place] - [facility] 5 10:41:14 Depressive disorder 53918602 Active Stiven [place] - [facility] 5 17:28:01 Leukocytosis 603313050 Active Stiven [place] - [facility] 5 10:41:14 Pain of shoulder region 66996756 Active Stvien Leon[place] null, [place] - [facility] 6 12:52:59 Problem Notes None recorded. Procedures Surgical History Date Name Laterality Status Provider Name and Address Organization Details Recorded Time Dilation and Curettage completed OLGA Will - [facility] 01/16/2015 16:53:09 Imaging Results None recorded. Procedure Notes None recorded. Medical Equipment None Reported. Allergies No known drug allergies Medications Name Sig Start Date Stop Date Status Note LastModified by Organization Details LastModified Time lomedia 24 tab felomedia 24 fe take 1 tablet by mouth every day active Not Available Not Available No t Available microgestin tab 1/20microges tin 1/20 take 1 tablet by mouth every day active Not Available Not Available No t Available cephalexin cap 500mgcephale ryan active Not Available Not Available Not Available viibryd tab 40mgviibryd take 1 tablet by mouth every day active from [facility] . Not Available Not Available Not Available cyclobenzapr ine 10 mg tablet Take 1 tablet 3 times a day by oral route as needed. 09/10 completed Not Available Not Available Not Available sumatriptan 100 mg tablet active Not Available Not Available Not Available hydrocodone 5 mg-acetamino phen 325 mg tablet Take 1 tablet 3 times a day by oral route as needed. 09/10 completed Not Available Not Available Not Available meloxicam 15 mg tablet Take 1 tablet every day by oral route with meals. 2017 active Not Available Not Available Not Avai lable ondansetron HCl 4 mg tablet Take 1 tablet 3 times a day by oral route as needed. 2017 active Not Available Not Available Not Avai lable topiramate 25 mg tablet active Not Available Not Available Not Available meloxicam 7.5 mg tablet active Not Available Not Available Not Available gabapentin 300 mg capsule active Not Available Not Available Not Available Tylenol-Code ine #3 300 mg-30 mg tablet Take 1 tablet every 8 hours by oral route as needed. 2017 active Not Available Not Available Not Avai lable Vitamin D2 1,250 mcg (50,000 unit) capsule Take 1 capsule every week by oral route. 2017 active Not Available Not Available Not Avai lable duloxetine 30 mg capsule,nhi yed release active Not Available Not Available Not Available Viibryd 40 mg tablet Take 1 tablet every day by oral route for 30 days. 09/10 completed From [place] [facility]. Not Available Not Available Not Available Gildess 09/05 (21) 1 mg-20 mcg tablet active Not Available Not Available N ot Available Gildess 24 Fe 1 mg-20 mcg (24)/75 mg (4) tablet active Not Available Not Available Not Available Vitals Date Recorded Body height Body mass index (BMI) Body weight Heart rate Respiratory rate Body temperature Oxygen saturation Oxygen saturation in Arterial blood by Pulse oximetry Systolic And Diastolic Provider Name and Address Organization Details Last Updated DateTime 8 156.21 cm 15.3 kg/m2 00766.0 1 g 125 /min 12 /min 98.2 [degF] 100 % 100 % 104/70 mm[Hg] CESIA Alba [facility] 8 09:30:37 Date Recorded Body height Heart rate Oxygen saturation Oxygen saturation in Arterial blood by Pulse oximetry Body temperature Body weight Body mass index (BMI) Respiratory rate Systolic And Diastolic Provider Name and Address Organization Details Last Updated DateTime 6 154.94 cm 90 /min 100 % 100 % 98.3 [degF] 52991.3 0729 g 22.1 kg/m2 16 /min 110/60 mm[Hg] Verónica blackburn MA [facility] 6 12:33:14 Date Recorded Respiratory rate Oxygen saturation Oxygen saturation in Arterial blood by Pulse oximetry Body weight Heart rate Body mass index (BMI) Body height Body temperature Systolic And Diastolic Provider Name and Address Organization Details Last Updated DateTime 5 16 /min 100 % 100 % 60559.4 9203 g 96 /min 22.5 kg/m2 154.94 cm 98.3 [degF] 100/70 mm[Hg] Verónica blackburn MA [facility] 5 16:53:09 Date Recorded Respiratory rate Body weight Oxygen saturation Oxygen saturation in Arterial blood by Pulse oximetry Body height Body mass index (BMI) Body temperature Heart rate Systolic And Diastolic Provider Name and Address Organization Details Last Updated DateTime 5 16 /min 49055.4 9203 g 99 % 99 % 154.94 cm 22.5 kg/m2 98.6 [degF] 100 /min 100/70 mm[Hg] Verónica blackburn MA [facility] 5 09:18:00 Date Recorded Respiratory rate Body weight Body height Body temperature Heart rate Body mass index (BMI) Systolic And Diastolic Provider Name and Address Organization Details Last Updated DateTime 5 18 /min 15035.0 34371 g 154.94 cm 98.4 [degF] 72 /min 22.6 kg/m2 108/60 mm[Hg] Liberty Wooten LPN [place] [facility] 5 09:39:56 Social History Question Answer Notes LastModified by [employer] Details LastModified Time Tobacco Smoking Status Former Smoker quit 2015 OLGA [place], [place] - [place] 01/16/2015 16:53:09 What Is Your Level Of Caffeine Consumption? Occasional Coffee Information not available 09/10/2017 How Much Tobacco Do You Chew? None Information not available 09/10/2017 What Type Of Diet Are You Following? REGULAR High Calorie Information not available 09/10/2017 Which Illicit Or Recreational Drugs Have You Used? None Information not available 09/10/2017 Education 2 Year College Information not available 09/10/2017 Hard Of Hearing Or Deaf In One Or Both Ears? Yes Both Ear Hard Of Hearing Information not available 09/10/2017 Legally Blind In One Or Both Eyes? No Information not available 09/10/2017 Marital Status Single Boyfriend Informatio n not available 09/10/2017 What Was The Date Of Your Most Recent Tobacco Screening? 09/10/2017 Information not available 03/10/2019 Performs Monthly Self-breast Exam? Yes Information not available 09/10/2017 How Much Tobacco Do You Smoke? 0.5 PPD cgrandberry Information not available 01/16/2015 General Stress Level Medium Information not available 09/10/2017 How Many Years Have You Smoked Tobacco? 10 Information not available 09/10/2017 Sex: Unknown Functional Status Question Answer Note LastModified by Organizat ion Details LastModified Time What is your level of alcohol consumption? 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 None Information not available 09/10/2017 Mental Status None recorded. Family History Relationship Description Onset Age of this Age Resolved Age Notes LastModified by Organization Details LastModified Time Mother Myocardial infarction [email or web address] Not available 01/31 09:39:56 Mother Hyperlipidem ia [email or web address] Not available 2014 09:39:56 Mother Essential hypertension [email or web address] Not available 09:39:56 Mother Coronary arterioscler osis jennifer Not available 2017 09:15:30 Father Hypercholest erolemia jennifer Not available 2017 09:15:41 Medical History Condition Response Muscle, Joint, or Bone Problems Y Headaches Y Gynecological History Statement/Question Response Menses Monthly Y Current Control Method None Date of LMP 08/28/2017 Obstetrics History GPAL:G 4 P 3 0 1 3 Type Value Full Term 3 Spontaneous 1 Living 3 Total 4 Immunizations Vaccine Type Date Status Note Provider Edinson kimble and Address Organization Details Recorded Time Tdap 12/31/2010 completed CORI Ochoa - [facility] 01/16/2015 17:17:01 Past Encounters Encounter ID Performer Location Encounter Start Date Encounter Closed Date Diagnosis/Indication Diagnosis SNOMED-CT Code Diagnosis ICD10 Code Diagnosis Note [id number] MD Ute Cantu (Adult Med) [address] [place] [address] 01/16/2015 16:27:47 01/17/2015 09:48:20 Pain of multiple joints [id number] Patient is c/o severe pain in all the joints.Celeste nt pains improved during the . Takes otc NSAIDS but no relief of pain. Check labs cbc,cmp,ts h,luci and rheumatoid factor. Depressive disorder 98878078 Depression well controlled with Viibryd. Continue Viibryd. [id number] MD Ute Cantu (Adult Med) [address] [place] [address] 01/24/2015 09:07:29 01/24/2015 10:38:16 Pain of multiple joints 03042736 Patient is c/o severe pain in all the joints mainly both shoulders, elbows and wrist. NSAIDS not relieving the pain. LUCI and and Rheumatoid factor negative. Take Hydrocodon e with severe pain. Check sed rate Leukocytosis 615862059 C BC showed mild leukocytos is with elevated neutrophil count. No signs and symptoms of infection. Repeat the CBC and do sed rate. [id number] MD Ute Cantu (Adult Med) [address] [place] [address] 01/31/2015 09:28:42 01/31/2015 12:41:32 Pain of multiple joints 76763799 Patient is c/o severe pain in all the joints mainly both shoulders, elbows , wrist,fing ers.Migrat ing joint pains. NSAIDS not relieving the pain. LUCI and and Rheumatoid factor is negative.E SR is normal.Den ies worsening of Depression .Takes Viibryd 40 mg po daily. Refer to Rheumatolo gist. Keep the follow up appointmen t and f/u as needed. Leukocytosis [id number] R epeat CBC showed normal WBC count. Sed rate is normal. Afebrile. [id number] MD Ute Cantu (Adult Med) [address] [place] [address] 12/24/2015 11:48:59 12/25/2015 13:37:45 Pain of shoulder region 04277028 M25.512 Likely secondary to sprain. X ray Left shoulder. Hydrocodon e for severe pain. Ibuprofen otc 600 mg po q 6h prn. Refer to Physical therapy If the pain is not improving [id number] [facility] [address] [place] [address] 09/10/2017 09:03:19 09/16/2017 11:25:23 Myalgia/myositis - multiple 609381386 M79.1 No longer seeing rheumatolo gy. Not sure if she has fibromyalg ia or if this is other disease process w/ new weight loss sxs that started after initial w/u for MS was done 2-3yrs ago. Chronic he adache disorder 729382160 G44.89 persists and has worsened with unintentio nal weight loss. r/o brain mass. discuss medication s at f/u if labs & imaging are negative. Unintentio nal weight loss 137810829 R63.[address] Eaton. Start with preliminar y lab workup to rule out metabolic or infectious cause, check imaging studies to r/o neoplasm. If negative, dwp that we need to consider referral to GI for both upper & lower endoscopy. close f/u in 4 weeks. Body mass index less than 16.5 526547540 Z68.1 patient advised to continue high calorie protein shakes and eating high calorie foods. Vitamin D deficiency 347 48986 E55.9 h/o low vit D, not currently on supplement s. Nausea 862460516 R11.0 new sxs in last week, check labs & get imaging. Health Concerns Section Related Observation LastModified by Organization Detai ls LastModified Time None Recorded Concern Status LastModified by Organization Details LastModified Time None Recorded Advance Directives Directive None Recorded Payers Insurance Date Sequence Insurance Name Policy Number Policy Davison Covered Member ID Davison Member ID Guarantor Name 12/21/2015 2 [facility] (MEDICAID HMO) Angelika Wesley [id number] Angelika Wesley 02/26/2015 2 [place] [facility] Angelika Edison [id number] Angelika Edison 09/30/2017 1 [place] [facility] Angelika Edison [id number] Angelika Edison 12/24/2015 1 [place] [id number] Angelika Wesley [id number] Angelika Wesley 09/09/2017 1 LEE ANN (PPO) [id number] Angelika Edison [id number] Angelika Edison 09/30/2017 2 [employer] (PPO) [id number] Angelika Edison [id number] Angelika Wesley Notes Date Note Type Note Provider Name and Address Organization Details Recorded Time 12/24/2015 text/html ShoulderReported bypatient.Location:lef t Quality:sharp Severity:severe; pain level 8/10 Duration:5 days; weeks Timing:acute Context:cannot identify Aggravating Factors:lifting; ROM Associated Symptoms:no swelling; no redness; no warmth; no ecchymosis; no catching/locking; no popping/clicking; no grinding; no feverNotes:[facility]one. CORI [place] - [place] 12/25/2015 12:53:05 09/10/2017 text/html numbness/burning sensation workup w/ neuro negative for MS, normal brain & L-spine MRI, except few mild bulging discs. referred to rheumatology. Worried about lupus or RA, but both were negative on blood work. Other w/u neg. Pain seems to have worsened. Some days generalized muscle aches like flu. Most mornings wakes up feeling like muscles on fire, spreads all the way to feet at times. Some night sweats lately, no fevers/chills. Working dx of fibromyalgia. Gabapentin & lyrica not effective, lyrica made CONRAD worse. Savella didn't work either. Went to ER and meloxicam given, but that didn't really help. Ibuprofen dulls it slightly. new unintentional weight loss, 1 1/2 yrs ago after her last , got up to 130lbs before pregancy, during down to 106 lbs and stayed same weight throughout. Baby's growth was normal in utero, 6# 2oz. She has been taking high calorie shakes & foods, no loss in last few months, but not gaining.In last 2 weeks nauseated after eating. no abdominal pains really, cramps in AM that resolve w/ BM. No blood or dark stools.No UTI sxs, sometimes increased frequency.no new w/u since weight loss started.No GI workup. CONRAD mostly every day, has to lay down, not always same location, at times frontal or occipital. Some assoc nausea. imitrex makes her feel like she has tunnel vision and sleepy. some double vision, short period, doesn't affect activites, doesnt' make her dizzy. At times she has dizziness separate from CONRAD and vision change. h/o low BP. No known FHx to these sxs. Tamy Davies PA-C Attn: Accounting,[address] [facility], [place], [address], [place] - [place] 09/16/2017 10:18:02 OBGyn Episode No OBEpisode recorded.
[2025-03-07 00:48] LABS: Hematocrit 39.4 % (37.0-47.0); Hemoglobin 13.4 g/dL (12.0-15.0); Immature Granulocyte Percent A 0.4 % (0-0.5); Lymphocytes Absolute Auto 1.26 K/mm3 (0.9-3.2); Mean Corpuscular HGB Conc 34.0 g/dl (32-36); Mean Corpuscular Hemoglobin 29.5 pg (26-34); Mean Corpuscular Volume 86.6 fl (80-100); Nucleated Red Blood Cells Absolute Auto 0.000 K/mm3 (0.0-0.012); Nucleated Red Blood Cells Perc 0.0 % (0.0-0.2); Platelet Count Result 188 k/mm3 (150-375); Red Blood Count 4.55 M/mm3 (4.2-5.4); White Blood Count 16.3 K/mm3 (4.5-10.0)
[2025-03-07 00:51] LABS: BEDSIDEPREGUCG Negative (Negative)
--- OUTSIDE RECORDS SUMMARY | 2025-03-07 00:55 | XMS_ITS | Clinical Summary ---
Author Organization [facility] Address [address] [place] [address] Phone Care Team Providers Care Sales Promotion Manager Name Role Phone Tamy Davies Primary Care Provider [phone] Social History Tobacco Use Types Packs/Day Years [...] age to complete this topic Insurance MEDICAID [place] Care Teams Sales Promotion Manager Relationship Specialty Start Date End Date Tamy Davies PA [address] [address] PCP - General Adult Medicine 09/15/17
[2025-03-07 00:57] LABS: Add Urine Microscopic? YES; Appearance Urine Turbid (Clear); Glucose Urine UA Negative (Negative); Leukocyte Esterase Ur 3+ LEU/UL (Negative); Need Manual Microscopic Reviewed; Nitrate Urine Positive (Negative); Specific Grav Ur 1.017 (1.001-1.035)
[2025-03-07 01:09] LABS: Alanine Aminotransferase 29 U/L (6-35); Albumin Level 4.6 g/dL (3.5-5.1); Alkaline Phosphatase 55 U/L (38-126); Anion Gap 11 mmol/L (4-12); Aspartate Amino Transferase 39 U/L (14-36); Bilirubin,Total 0.7 mg/dL (0.2-1.3); Blood Urea Nitrogen 5 mg/dL (7-17); Calcium 9.5 mg/dL (8.4-10.2); Carbon Dioxide 21 mmol/L (22-30); Chloride 99 mmol/L (98-107); Estimated CRCL calculation 73 ml/min; Estimated Glomerular Filt Rate > 60; Glucose 122 mg/dL (65-110); Lipase 64 U/L (23-300); Potassium 3.6 mmol/L (3.4-5.0); Sodium 131 mmol/L (137-145); Total Protein 8.0 g/dL (6.3-8.2)
--- NOTE | 2025-03-07 01:38 | ED_ITS ---
HPI - Female Genitourinary General Chief complaint: Urogenital-Female Stated complaint: right flank pain, possible UTI Time Seen by Provider: 03/07/25 00:23 Source: patient Mode of arrival: ambulatory Limitations: no limitations History of Present Illness HPI Narrative: This is a 39 year old female that presents to the ER for dysuria. Ongoing over the last 4 days. Reports associated right flank pain and nausea. Denies fevers, vomiting, hematuria. Related Data Allergies Allergy/AdvReac Type Severity Reaction Status Date / Time No Known Allergies Allergy Unverified 04/30/17 13:00 Review of Systems 2 Review of Systems: All systems reviewed & are unremarkable except as noted in HPI and below PMFSH Past Medical History Medical History (Updated 03/07/25 @ 03:52 by Patito Karimi PA-C) No active medical problems Exam 2 Narrative: GENERAL: Well-appearing, well-nourished, and in no acute distress. HEAD: Normocephalic, atraumatic. EYES: EOMI. CHEST: Clear to auscultation. No respiratory distress. No wheezes rales or rhonchi HEART: Regular rate and rhythm. No murmur heard. Normal peripheral pulses. ABDOMEN: Soft, nontender, nondistended, normal active bowel sounds. Right sided CVA tenderness EXTREMITIES: Normal range of motion. No edema. SKIN: Warm, dry, no rash. NEURO: No focal deficits. Alert and oriented x3. PSYCH: Normal mood and affect Course Course Emergency Course: Patient updated on her workup, resting comfortably Vital Signs Vital signs: Vital Signs Temperature 97.7 F 03/07/25 00:11 Pulse Rate 115 H 03/07/25 00:11 Respiratory Rate 18 03/07/25 00:11 Blood Pressure 120/93 H 03/07/25 00:11 Pulse Oximetry 99 03/07/25 00:11 Oxygen Delivery Room Air 03/07/25 00:11 Temperature 97.7 F 03/07/25 00:11 Pulse Rate 103 H 03/07/25 02:47 Respiratory Rate 15 03/07/25 02:47 Blood Pressure 113/89 03/07/25 02:47 Pulse Oximetry 99 03/07/25 02:47 Oxygen Delivery Room Air 03/07/25 00:11 MDM - Female Genitourinary MDM Narrative Medical decision making narrative: Patient presents to the emergency department for flank pain, urinary symptoms. Tachycardic upon arrival, this normalized with IV fluids. Patient is afebrile and nontoxic appearing. CBC with leukocytosis to 16.3. Metabolic panel with normal kidney function. Urine with evidence of infection. This was sent for culture. test negative. CT abdomen and pelvis without acute findings. Patient given 1st dose of antibiotics IV in the ER. Will be continued on oral antibiotics. She was given warnings to return to the ER Differential Diagnosis Differential diagnosis: Likely urinary tract infection and other (Pyelonephritis, kidney stone) Lab Data Attestation: I reviewed the patient's lab results. 03/07/25 00:42 03/07/25 00:42 Labs: Lab Results 03/07/25 03/07/25 03/07/25 Range/Units 00:30 00:42 00:49 WBC 16.3 H (4.5-10.0) K/mm3 RBC 4.55 (4.2-5.4) M/mm3 Hgb 13.4 (12.0-15.0) g/dL Hct 39.4 (37.0-47.0) % MCV 86.6 (80-100) fl MCH 29.5 (26-34) pg MCHC 34.0 (32-36) g/dl RDW 11.9 (11.5-14.5) % Plt Count 188 (150-375) k/mm3 MPV 8.8 (7.4-10.4) fl Immature Gran % (Auto) 0.4 (0-0.5) % Neut % (Auto) 86.1 H (45.5-73.1) % Lymph % (Auto) 7.7 L (18.3-44.2) % [place] % (Auto) 5.2 (2.6-8.5) % Eos % (Auto) 0.2 (0-4.4) % Baso % (Auto) 0.4 (0.2-1.2) % Lymph # (Auto) 1.26 (0.9-3.2) K/mm3 [place] # (Auto) 0.8 H (0.1-0.6) K/mm3 Eos # (Auto) 0.0 (0-0.3) K/mm3 Baso # (Auto) 0.1 (0.0-0.1) K/mm3 Abs Immat Gran (auto) 0.06 H (0.00-0.031) K/mm3 Absolute Neuts (auto) 14.1 H (1.3-6.7) K/mm3 Absolute Nucleated RBC 0.000 (0.0-0.012) K/mm3 Nucleated RBC % 0.0 (0.0-0.2) % Sodium 131 L (137-145) mmol/L Potassium 3.6 (3.4-5.0) mmol/L Chloride 99 (98-107) mmol/L Carbon Dioxide 21 L (22-30) mmol/L Anion Gap 11 (4-12) mmol/L BUN 5 L (7-17) mg/dL Creatinine 0.64 L (0.7-1.0) mg/dL Estim Creat Clear Calc 73 ml/min Estimated GFR > 60 (59 - ) Glucose 122 H (65-110) mg/dL Calcium 9.5 (8.4-10.2) mg/dL Total Bilirubin 0.7 (0.2-1.3) mg/dL AST 39 H (14-36) U/L ALT 29 (6-35) U/L Alkaline Phosphatase 55 (38-126) U/L Total Protein 8.0 (6.3-8.2) g/dL Albumin 4.6 (3.5-5.1) g/dL Lipase 64 (23-300) U/L Urine Color Dark yellow (Yellow) Urine Appearance Turbid H (Clear) Urine pH 5.5 (5.0-9.0) Ur Specific [place] 1.017 (1.001-1.035) Urine Protein 3+ H (Negative) mg/dL Urine Glucose (UA) Negative (Negative) mg/dL Urine Ketones Trace H (Negative) mg/dL Ur Blood (Man) 3+ H (Negative) Urine Nitrate Positive H (Negative) Urine Bilirubin 1+ H (Negative) Urine Urobilinogen 1.0 (<2.0) mg/dL Add Ur Microanalysis Reviewed Leukocyte Esterase Rfl 3+ H (Negative) ALMAS/UL Urine RBC 51-100 H (0-2) /hpf Urine WBC >100 H (0-3) /hpf Ur Squamous Epith Cells Moderate (Few) /hpf Urine Bacteria 4+ H /hpf Urine Casts 3-5 POC Urine HCG, Qual Negative (Negative) Imaging Data Radiologist's impression: CT abdomen and pelvis: No acute findings Critical Care Time Critical Care Time Critical Care Time: No Discharge Plan Discharge Clinical Impression: Pyelonephritis Patient Disposition: Home Condition: Stable Instructions: Antibiotic Form, Kidney Infection (ED) Additional Instructions: Return to the ER if you experience fever, abdominal pain with nausea and vomiting, you are unable to keep down liquids or solids, or any other symptoms that are concerning to you Remain well hydrated. Take oral antibiotics as prescribed Follow up with your primary care doctor Patient Language: Armenian Prescriptions: New cefdinir 300 mg capsule 300 mg PO Q12H 10 Days Qty: 20 0RF Follow-up/Referrals: PHYSICIAN,SWITCHBOARD OPERATOR ASSISTANT [Primary Care Provider] - Roberto Garcia MD [Physician] -
[2025-03-07] MEDS: SODIUM CHLORIDE 0.9% IV 1,000 ML 999 ML IV CONT (01:46)
[2025-03-07] MEDS: cefTRIAXone 1 GM in SODIUM CHLORIDE 0.9% IV 50 ML 100 ML IVPB (04:12)
[2025-03-07] MEDS: MORPHINE SULFATE (*CRX) 4 MG/ML INJ IV PUSH (04:40)
[2025-03-07] MEDS: levoFLOXacin 750 MG/D5W 150 ML 750 MG/150 ML BAG 100 MG IVPB (04:48)
== END 2025-03-07 06:21 | disposition home or self-care (01) ==
PROVIDERS: Emergency Provider Physician Assistant
DX: N12 Tubulo-interstitial nephritis, not specified as acute or chronic (principal)
CPT/HCPCS: 36415; 74176; 80053; 81001; 81025; 83690; 85025; 87086; 96361; 96365; 96367; 96375; 99284; J0696; J1956; J2270; J7030